=== PATIENT | male | born 1970 | race Two or more races ===

== ENCOUNTER 2023-09-03 18:24 | Emergency (ER) | payer SELFPAY ==
[~2023-09-03] VITALS: Ht 165.1 cm; Wt 82.1 kg
[2023-09-03 20:00] VITALS: BP 130/68; TEMP 98.2
[2023-09-03] MEDS ORDERED: NALO4SPR BNOSTRILS (21:14)
[2023-09-03 21:21] VITALS: O2SAT 99
== END 2023-09-03 21:26 | disposition home or self-care (01) ==
LOC: ER 18:33
DX: T40.411A Poisoning by fentanyl or fentanyl analogs, accidental (unintentional), initial encounter (principal); Z79.899 Other long term (current) drug therapy; Y92.89 Other specified places as the place of occurrence of the external cause